=== PATIENT | male | born 1940 | race Caucasian/White ===

== ENCOUNTER 2016-10-13 00:21 | Emergency (ER) | payer OTHER ==
[~2016-10-13] VITALS: Ht 180.3 cm; Wt 96.0 kg
[~2016-10-13 00:21] MED LIST: AMARYL4 MG PO; AMLODIPINE BESYL5 MG PO; BACTRIM,SEPT1 TABLET PO; KEFLEX500 MG PO; LOSARTAN POTASS50 MG PO
[2016-10-13 02:03] VITALS: BP 170/97
== END 2016-10-13 02:05 | disposition home or self-care (01) ==
LOC: EME 00:21
DX: S00.83XA Contusion of other part of head, initial encounter (principal); S09.8XXA Other specified injuries of head, initial encounter; S00.81XA Abrasion of other part of head, initial encounter; W06.XXXA Fall from bed, initial encounter; Y93.84 Activity, sleeping; Y92.003 Bedroom of unspecified non-institutional (private) residence as the place of occurrence of the external cause; I10 Essential (primary) hypertension; E11.9 Type 2 diabetes mellitus without complications
CPT/HCPCS: 70450; 70486; 99281; 99284